=== PATIENT | male | born 1960 | race Caucasian/White ===

== ENCOUNTER 2023-12-19 04:00 | Emergency (ER) | payer BC, SELFPAY ==
[2023-12-19 04:07] VITALS: BP 165/98
[2023-12-19 05:21] VITALS: BMI 27.4
[2023-12-19 07:58] VITALS: BP 135/83
[2023-12-19 08:00] VITALS: BP 132/80
[2023-12-19 08:02] VITALS: BP 135/83
[2023-12-19] MEDS: DECADRON 10 MG PO (08:05)
--- NOTE | 2023-12-19 08:07 | ED.GENMED ---
History of Present Illness
General
Chief Complaint: Throat Problem
Source: patient
Exam Limitations: none
Time Seen by Provider: 12/19/23 07:09
Nursing documentation reviewed up to this point in time: agreed with
History of Present Illness
History of Present Illness:
63-year-old male past medical history of hypertension presenting to the emergency department today with concerns of some trouble swallowing. He claims that last night he noticed that when he would swallow his saliva he would feel tight in his
throat. He claims that he had significant allergy symptoms over the past few weeks has been taking Zyrtec but is noted some increasing swelling. Also noted some swollen glands bilaterally. Denies any fevers chest pain shortness of breath or
additional symptoms otherwise. Denies any rash.
Past History
Past History
ED Past Medical History: HTN and Hypothyroidism
ED Past Surgical History: None
Social History
Tobacco: Non-smoker
Alcohol: Occasional
Drug: None
Personal:
Living: with family
Employment: Employed
Review of Systems
Review of Systems
Allergies reviewed?: Yes
All Other Systems: ROS reviewed and negative except as documented in HPI and ROS
Phy Exam
Physical Exam
Physical Exam:
GENERAL: Alert , in no apparent distress
EYE: pupils equal and reactive
NECK: Supple, no significant adenopathy.
ENT: Cobblestoning the posterior pharynx mild redness, swollen boggy nasal turbinates, o/p clr, mmm.
CARDIAC: Regular rate and rhythm .
LUNGS: Clear breath sounds bilaterally, no acute respiratory distress, no wheezes/rales/rhonchi
ABDOMEN: Soft, without focal tenderness, no r/g, no cvat
NEUROLOGICAL: Alert and oriented, no focal neuro deficits
SKIN: Warm and dry, skin intact.
MUSCULOSKELETAL: No edema, well perfused.
PSYCH: Normal and appropriate interaction.
Course
Orders/Labs/Results
Orders:
Orders
12/19/23 07:52
Dexamethasone [Decadron] 10 mg PO NOW STA
Vital Signs
Initial and Last Documented VS:
Initial Vital Signs
Temp Pulse Resp BP Pulse Ox
98 F 58 24 165/98 94
12/19/23 04:07 12/19/23 04:07 12/19/23 04:07 12/19/23 04:07 12/19/23 04:07
Last Documented Vital Signs
Temp Pulse Resp BP Pulse Ox
98 F 54 18 135/83 97
12/19/23 04:07 12/19/23 08:02 12/19/23 08:09 12/19/23 08:02 12/19/23 08:02
MDM/Problems Addressed
MDM/Problems Addressed:
63-year-old male presenting to the emergency department today with concerns of feeling of something stuck in his throat when he tries to swallow. Noticed this last night denies any issues after eating yesterday has been able to tolerate fluids. On
arrival vital signs are normal patient no obvious distress tolerating secretions lung sounds are normal posterior pharynx does have moderate swelling of the posterior pharynx. Symptoms could be related to allergic inflammation. He was given a dose
of steroid and had already taken a histamine today. He does have some mildly swollen submandibular lymphadenopathy. No evidence of bacterial infection of the throat. Patient was able to tolerate fluids without difficulty plan to treat with
steroids and close ENT follow-up for any ongoing symptoms and strict return precautions for any progression.
*Critical Care Note
Total Time (30-74mins, 75-104mins- exclusive of procedures): Not Applicable
ED Attending Note
-
Portions of this chart may have been created with voice recognition software.� Occasional wrong word or��sound alike� substitutions may have occurred due to the inherent limitations of voice recognition software.
Discharge Plan
Departure
Patient Disposition: Home (Routine Discharge)
Date of Disposition: 12/19/23
Time of Disposition: :
Patient with high blood pressure during this ER visit?: No
Condition: Good
Covid-19: Not Applicable
Discharge Problem:
Throat swelling
Instructions: Sore Throat, Adult (DC)
Prescriptions:
New
prednisone 50 mg tablet
50 mg PO DAILY 4 Days Qty: 4 0RF
Referrals:
Anthony Parker MD [Active] - Follow up in 5-7 days
Sanjuanita Fay CRNP [Family Provider] -
Activity Restrictions/Additional Instructions:
You came to the emergency department today with concerns of swelling of the throat. Please take the prescribed steroid and your antihistamine and follow-up closely with ENT as needed. Return to the emergency department immediately for any
progressive symptoms.
Interventions
Interventions:
*Risk Screen - Suicide Last Done: 12/19/23 04:07
*General Assessment Last Done: 12/19/23 05:22
*Neglect/Abuse Screening Last Done: 12/19/23 04:07
ED-EENT Assessment Last Done: 12/19/23 05:24
ED- Pulmonary Assessment Last Done: 12/19/23 05:27
Discharge Date and Time
Print Language: [place]
== END 2023-12-19 09:50 | disposition home or self-care (01) ==
LOC: EMR 04:00
PROVIDERS: EMERGENCY PHYSICIAN Emergency Medicine; FAMILY PHYSICIAN Nurse Practitioner
DX: R22.1 Localized swelling, mass and lump, neck (principal); R13.10 Dysphagia, unspecified; R59.1 Generalized enlarged lymph nodes; I10 Essential (primary) hypertension; E03.9 Hypothyroidism, unspecified
CPT/HCPCS: 99283

== ENCOUNTER 2024-12-03 07:09 | Emergency (ER) | payer BC, SELFPAY ==
[2024-12-03 07:15] VITALS: BP 150/94
[2024-12-03 08:29] VITALS: BMI 28.0
[2024-12-03 08:32] VITALS: BP 131/86
--- NOTE | 2024-12-03 08:56 | ED.GENMED ---
History of Present Illness
General
Chief Complaint: Cardiac Symptoms
Source: patient
Time Seen by Provider: 12/03/24 08:31
History of Present Illness
History of Present Illness:
64-year-old male with past medical history of hypothyroidism, BPH and GERD presenting to the emergency department for evaluation of palpitations that started this morning stating the heart rate was going between 90 to low 100s without any other
associated symptoms, patient states that his Apple Watch told him that he could potentially be in A-fib which is why he presented to the ER, at time of my evaluation patient is asymptomatic. Patient denies any fevers, chills, rigors, cough,
pleurisy, hemoptysis, lower extremity edema, chest pain, shortness of breath or any other concerns. Social history was noted for weekend alcohol consumption although noted to be in moderation. Patient also travels very frequently for work.
Patient has seen cardiology in the past due to episodes of syncope about 3 years ago with symptoms suspected to be related to patient being overmedicated on blood pressure meds. Family history noncontributory. No other concerns at this time.
Past History
Past History
ED Past Medical History: Hypothyroidism
ED Past Surgical History: Orthopedic and Tonsilectomy
Social History
Tobacco: Non-smoker
Alcohol: Occasional
Drug: None
Personal:
Living: with family
Employment: Employed
Review of Systems
Review of Systems
All Other Systems: ROS reviewed and negative except as documented in HPI and ROS
Phy Exam
Physical Exam
Physical Exam:
GENERAL: Alert , in no apparent distress
EYE: conjunctiva clear
NECK: Supple
ENT: o/p clr, mmm.
CARDIAC: Regular rate and rhythm
LUNGS: Clear breath sounds bilaterally, no acute respiratory distress, no wheezes/rales/rhonchi
NEUROLOGICAL: Alert and oriented
SKIN: Warm and dry, skin intact.
MUSCULOSKELETAL: well perfused. No edema
PSYCH: Normal and appropriate interaction.
Scores
Heart Failure Risk
Heart Failure Risk Score: Not Applicable
Heart Score for Chest Pain Patients
STEMI patient?: Not applicable
Withdrawal Assessment of Alcohol
Withdrawal Assessment Completed?: Not applicable
Course
Orders/Labs/Results
Orders:
Orders
12/03/24 07:10
Electrocardiogram (*1) Urgent
Reason for Study: Palpitations
EKG- Treatment ONCE
12/03/24 08:52
Complete Blood Count/With Diff Urgent
Comprehensive Metabolic Panel Urgent
TSH Urgent
Troponin I Urgent
Abnormal Lab Results
12/03/24
08:52
WBC 4.0 L 10^3/uL
(4.8-10.8)
RBC 4.24 L 10^6/uL
(4.70-6.10)
MCH 33.5 H pg
(27.0-31.0)
Monocytes % 9.8 H %
(1.7-9.3)
Chloride 110 H mmol/L
(98-107)
Glucose 110 H mg/dl
(70-99)
12/03/24 08:52
12/03/24 08:52
Vital Signs
Initial and Last Documented VS:
Initial Vital Signs
Temp Pulse Resp BP Pulse Ox
98.6 F 64 16 150/94 96
12/03/24 07:15 12/03/24 07:15 12/03/24 07:15 12/03/24 07:15 12/03/24 07:15
Last Documented Vital Signs
Temp Pulse Resp BP Pulse Ox
98.6 F 50 14 135/84 97
12/03/24 07:15 12/03/24 10:00 12/03/24 10:00 12/03/24 10:00 12/03/24 10:00
MDM/Problems Addressed
Differential Diagnosis Includes:
- A-fib or other cardiac arrhythmia
- PACs/PVC
- Thyroid dysfunction
- Electrolyte imbalance
- Less concern for ACS
- PE considered given patient's recent travel however he is nontachycardic, nontachypneic, no chest pain or shortness of breath
MDM/Problems Addressed:
64-year-old male presenting to the ER for evaluation of palpitations, Apple Watch reportedly telling him he was in A-fib this morning, by time of arrival to the emergency department patient is in a normal sinus rhythm with PACs noted. Had extensive
conversation with patient in regards to possibility he could have been in A-fib versus other cardiac arrhythmias versus symptomatic PACs. Will check labs including TSH. As long as patient remains in a normal sinus rhythm will encourage outpatient
follow-up with his cardiology team as patient may need a Holter monitor. Anticipate discharge home pending labs.
*Pulse Oximetry
SaO2: 98
Oxygen Mode of Delivery: Room air
Patient hypoxic: no
*EKG
Interpreted by ED Provider?: Yes
Heart Rate: 60
Rate: normal
Rhythm: sinus and PAC's
[place]: normal axis
Ischemia: no ischemia
*Fermenter Interpretation
Rate: bradycardiac
Rhythm: sinus
*Critical Care Note
Total Time (30-74mins, 75-104mins- exclusive of procedures): Not Applicable
Data Reviewed
Review of Other/Old Records Reveals: Labs and Records
Patient Management
Escalation/DeEscalation of care consider admission/obs:
Labs reassuring, patient has remained in a sinus bradycardia or normal sinus rhythm for duration of ER visit. Stable for outpatient follow-up. Aware of return precautions to the ER.
ED Attending Note
-
Portions of this chart may have been created with voice recognition software.� Occasional wrong word or��sound alike� substitutions may have occurred due to the inherent limitations of voice recognition software.
Discharge Plan
Departure
Patient Disposition: Home (Routine Discharge)
Date of Disposition: 12/03/24
Time of Disposition: 09:56
Patient with high blood pressure during this ER visit?: Yes
Discharge Problem:
Palpitations
Instructions: Palpitations - ED discharge instructions
Prescriptions:
No Action
prednisone 50 mg tablet
50 mg PO DAILY 4 Days Qty: 4 0RF
Referrals:
Santa Ag MD [Family Provider, Internal Medicine]
Interventions
Interventions:
*Risk Screen - Suicide Last Done: 12/03/24 07:11
*General Assessment Last Done: 12/03/24 08:32
*Neglect/Abuse Screening Last Done: 12/03/24 08:32
*ED- Fall Risk Assessment Last Done: 12/03/24 08:32
*ED COVID-19 Vaccine History Last Done: 12/03/24 08:32
*Nursing Disposition Last Done: 12/03/24 10:05
ED- Pulmonary Assessment Last Done: 12/03/24 08:37
ED- Cardiac Assessment Last Done: 12/03/24 08:37
Discharge Date and Time
Discharge Date/Time: 12/03/24 10:08
Print Language: [id number]
[2024-12-03 09:00] VITALS: BP 144/89
[2024-12-03 09:12] LABS: % Eosinophils 5.5 % (0-6); % Lymphocytes 38.5 % (20.5-51.1); % Monocytes 9.8 % (1.7-9.3); % Neutrophils 45.2 % (42.2-75.2); Absolute Eosinophils 0.2 10^3/uL (0-0.7); Absolute Lymphocytes 1.5 10^3/uL (1.2-3.4); Absolute Monocytes 0.4 10^3/uL (0.1-0.6); Absolute Neutrophils 1.8 10^3/uL (1.4-6.5); Hematocrit 39.8 % (39.0-52.0); Hemoglobin 14.2 g/dL (13.0-18.0); Mean Corp Hgb Conc. 35.7 g/dL (33.0-37.0); Mean Corpuscular Hgb 33.5 pg (27.0-31.0); Mean Corpuscular Volume 93.9 fL (80.0-94.0); Mean Platelet Volume 9.9 fL (7.4-10.4); Nucleated Red Blood Cells % 0 % (-); Platelet Count 175 10^3/uL (130-400); Red Blood Cell Count 4.24 10^6/uL (4.70-6.10); Red Cell Dist. Width 12.1 % (11.5-14.5)
[2024-12-03 09:29] LABS: ALT (SGPT) 19 U/L (0-50); AST (SGOT) 22 U/L (17-59); Albumin 4.2 g/dl (3.5-5.0); Alkaline Phosphatase 38 U/L (38-126); Blood Urea Nitrogen 16 mg/dl (9-20); Calcium 9.3 mg/dl (8.4-10.2); Carbon Dioxide 28 mmol/L (22-30); Chloride 110 mmol/L (98-107); Estimated Creatinine Clearance 91 ml/min; Glucose 110 mg/dl (70-99); Potassium 4.2 mmol/L (3.5-5.1); Sodium 143 mmol/L (135-145); Total Bilirubin 0.7 mg/dl (0.2-1.3); Total Protein 6.7 g/dl (6.3-8.2); eGFR > 60.00
[2024-12-03 09:39] LABS: Troponin I < 0.012 ng/ml
[2024-12-03 09:58] LABS: TSH 1.67 uIU/ml (0.47-4.68)
[2024-12-03 10:00] VITALS: BP 135/84
== END 2024-12-03 10:08 | disposition home or self-care (01) ==
LOC: EMR 07:09
PROVIDERS: Physician Assistant Medical; EMERGENCY PHYSICIAN Student in an Organized Health Care Education/Training Program; FAMILY PHYSICIAN Internal Medicine
DX: R00.2 Palpitations (principal); E03.9 Hypothyroidism, unspecified; R03.0 Elevated blood-pressure reading, without diagnosis of hypertension; N40.0 Benign prostatic hyperplasia without lower urinary tract symptoms; K21.9 Gastro-esophageal reflux disease without esophagitis
CPT/HCPCS: 99284; 80053; 84443; 84484; 85025; 93005

== ENCOUNTER → 2025-04-24 12:49 | Outpatient (REF) | payer BC, SELFPAY | LOC: RCS 12:49 | PROVIDERS: ATTENDING PHYSICIAN Internal Medicine Cardiovascular Disease; FAMILY PHYSICIAN Internal Medicine | DX: R00.1 Bradycardia, unspecified (principal); I35.1 Nonrheumatic aortic (valve) insufficiency; I47.19 Other supraventricular tachycardia; R00.2 Palpitations; R00.0 Tachycardia, unspecified | CPT/HCPCS: 93306 ==